=== PATIENT | male | born 1965 | race Caucasian/White ===

== ENCOUNTER 2016-07-07 04:38 | Emergency (ER) | payer OTHER | END 2016-07-07 06:16 | disposition home or self-care (01) | LOC: ER 04:38 | DX: L03.011 Cellulitis of right finger (principal); I10 Essential (primary) hypertension; J44.9 Chronic obstructive pulmonary disease, unspecified; F17.210 Nicotine dependence, cigarettes, uncomplicated; Z79.899 Other long term (current) drug therapy ==

== ENCOUNTER 2016-07-08 16:12 | Emergency (ER) | payer OTHER | END 2016-07-08 18:21 | disposition home or self-care (01) | LOC: ER 16:12 | DX: L03.011 Cellulitis of right finger (principal); I10 Essential (primary) hypertension; R11.10 Vomiting, unspecified; F17.210 Nicotine dependence, cigarettes, uncomplicated | CPT/HCPCS: 96365; J3370 ==

== ENCOUNTER 2016-07-10 19:35 | Emergency (ER) | payer OTHER | END 2016-07-10 22:07 | disposition home or self-care (01) | LOC: ER 19:35 | DX: L03.011 Cellulitis of right finger (principal); I10 Essential (primary) hypertension; F17.210 Nicotine dependence, cigarettes, uncomplicated; Z79.899 Other long term (current) drug therapy | CPT/HCPCS: 96372; J3370 ==

== ENCOUNTER 2016-08-03 18:50 | Emergency (ER) | payer OTHER | END 2016-08-03 20:17 | disposition home or self-care (01) | LOC: ER 18:50 | DX: M25.552 Pain in left hip (principal); M79.605 Pain in left leg; G89.29 Other chronic pain; I10 Essential (primary) hypertension; F17.210 Nicotine dependence, cigarettes, uncomplicated; Z79.899 Other long term (current) drug therapy | CPT/HCPCS: 73502-LT; 96372; J2270 ==